=== PATIENT | male | born 1985 | race African-American/Black ===

== ENCOUNTER 2025-04-23 12:08 | Outpatient (CLI) | payer OTHER, SELFPAY ==
[2025-04-23 12:33] LABS: Hematocrit 43.4 % (42.0-52.0); Hemoglobin 14.1 g/dL (14.0-18.0); Mean Corpuscular HGB Conc 32.5 g/dl (32-36); Mean Corpuscular Hemoglobin 26.3 pg (26-34); Mean Corpuscular Volume 81.0 fl (80-100); Platelet Count Result 193 k/mm3 (150-375); Red Blood Count 5.36 M/mm3 (4.6-6.20); White Blood Count 5.0 K/mm3 (4.5-10.0)
[2025-04-23 12:33] LABS: Add Urine Microscopic? NO; Appearance Urine Clear (Clear); Glucose Urine UA Negative (Negative); Leukocyte Esterase Ur Negative LEU/UL (Negative); Nitrate Urine Negative (Negative); Specific Grav Ur 1.012 (1.001-1.035)
[2025-04-23 12:54] LABS: Albumin Level 4.3 g/dL (3.5-5.1); Anion Gap 6 mmol/L (4-12); Blood Urea Nitrogen 22 mg/dL (9-20); Calcium 9.9 mg/dL (8.4-10.2); Carbon Dioxide 27 mmol/L (22-30); Chloride 104 mmol/L (98-107); Creatine Kinase 341 U/L (55-170); Estimated Glomerular Filt Rate 50; Glucose 97 mg/dL (65-110); Potassium 4.2 mmol/L (3.4-5.0); Sodium 137 mmol/L (137-145)
[2025-04-23 12:55] LABS: Total Protein Urine Random 9 mg/dL; Ur Ttl Prot Creatinine Ratio 0.14 mg/mg (0-0.20)
[2025-04-24 14:08] LABS: Free Lambda Lt Chains, Serum 9.4 mg/L (5.7-26.3); Kappa/Lambda Ratio, Serum 1.52 (0.26-1.65)
[2025-04-24 15:09] LABS: ANA by IFA Rfx Titer/Pattern Negative (.)
[2025-04-26 12:08] LABS: Immunoglobulin A, Qn 145 mg/dL (90-386); Immunoglobulin G, Qn 1239 mg/dL (603-1613); Immunoglobulin M, Qn 116 mg/dL (20-172)
[2025-04-26 13:08] LABS: Albumin, U 31.9 % (.); Alpha-1-Globulin, U 6.5 % (.); Alpha-2-Globulin, U 24.6 % (.); Beta Globulin, U 19.4 % (.); Gamma Globulin, U 17.6 % (.)
== END 2025-04-23 12:09 | disposition home or self-care (01) ==
PROVIDERS: PCP Internal Medicine Nephrology; Visit Provider Internal Medicine Nephrology
DX: R94.4 Abnormal results of kidney function studies (principal); I10 Essential (primary) hypertension
CPT/HCPCS: 36415; 80069; 81003; 82550; 82570; 82784; 83521; 83970; 84156; 84166; 85027; 85652; 86038; 86160; 86162; 86334; 86335